=== PATIENT | male | born 1940 | race American Indian/Alaskan Native ===

== ENCOUNTER 2020-12-11 09:57 | Outpatient (CLI) | payer MEDICARE ==
[2020-12-11 11:40] LABS: Blood Urea Nitrogen 10 mg/dL (9-20)
--- NOTE | 2020-12-11 13:47 | Cat Scan Report ---
CT ABDOMEN AND PELVIS WITH AND WITHOUT CONTRAST HISTORY: Prostate cancer. COMPARISON: None. TECHNIQUE: Helical CT images of the abdomen and pelvis were obtained before and after administration of intravenous contrast. CT urogram protocol. Sagittal and coronal reformatted images were reviewed. All CT scans at this location are performed using CT dose reduction for ALARA by means of automated e xposure control. CONTRAST: 100 ml of intravenous contrast administered. FINDINGS: Abdomen/pelvis: The prostate gland is moderately enlarged measuring 6.1 cm in diameter. Both kidneys are normal size, contour and position. 2.7 cm cyst near the inferior pole of the left kidney is note d. No renal mass or nephrolithiasis. There is normal enhancement of both kidneys following IV contras t. The delayed CT urogram images demonstrate normal excretion of contrast bilaterally. The ureters ar e normal course and caliber. No filling defect or abnormal dilatation. There is normal filling of the bladder. No bladder wall abnormality is detected. There is mild fatty change throughout the liver. Multiple small liver cysts are identified. No hepati c mass. The biliary system, pancreas, spleen, adrenal glands, bowel loops and appendix are unremarkab le. The aorta is ectatic with scattered calcifications but widely patent. No aneurysm. Lungs/bones: The lung bases are clear. Normal heart size. There are mild degenerative changes in the thoracolumbar spine. No suspicious bony lesion is detected. IMPRESSION: No evidence for metastatic disease to the abdomen or pelvis. Mild hepatic steatosis. Multiple small liver cysts. Unremarkable CT urogram. Enlarged prostate gland measuring 6.1 cm. Signer Name: Rambo Meadows Jr, MD Signed: 12/11/2020 1:42 PM Workstation Name: [id number]
--- NOTE | 2020-12-11 14:31 | Nuclear Medicine Report ---
NUCLEAR MEDICINE BONE SCAN, WHOLE BODY INDICATION / CLINICAL INFORMATION: PROSTATE CANCER. TECHNIQUE: 26.2 mCi of Tc-99m MDP were injected IV. Images were obtained of the whole body. COMPARISON: No relevant prior imaging study available. FINDINGS: BONES: No osseous lesion or other abnormality. JOINTS: Degenerative activity. SOFT TISSUES: No significant abnormality. KIDNEYS: No significant abnormality. ADDITIONAL FINDINGS: None. IMPRESSION: 1. No scintigraphic evidence of osseous metastatic disease. Signer Name: Prashanth Ocampo MD Signed: 12/11/2020 2:27 PM Workstation Name: [id number]
== END 2020-12-11 09:58 | disposition home or self-care (01) ==
LOC: CT 09:57
PROVIDERS: ATTEND Family Medicine
DX: N40.0 Benign prostatic hyperplasia without lower urinary tract symptoms (principal); N28.1 Cyst of kidney, acquired; K76.0 Fatty (change of) liver, not elsewhere classified; K76.89 Other specified diseases of liver; M47.815 Spondylosis without myelopathy or radiculopathy, thoracolumbar region; M19.09 Primary osteoarthritis, other specified site
CPT/HCPCS: 36415; 74178; 78306; 82565; 84520; A9503; Q9967